=== PATIENT | female | born 2000 | race Caucasian/White ===

== ENCOUNTER → 2021-12-17 | Outpatient (CLI) | payer OTHER | LOC: KOH-I 13:14 | DX: M79.671 Pain in right foot (principal) | CPT/HCPCS: 73630 ==

== ENCOUNTER → 2021-12-30 | Outpatient (CLI) | payer OTHER, BC | LOC: KOH-I 12-26 13:45 | DX: M79.671 Pain in right foot (principal); G89.29 Other chronic pain | CPT/HCPCS: 73718 ==